=== PATIENT | female | born 1955 | race Caucasian/White ===

== ENCOUNTER 2022-04-01 08:40 | Emergency (ER) | payer MEDICAID, MEDICARE ==
[~2022-04-01] VITALS: Ht 170.2 cm; Wt 52.2 kg
--- NOTE | 2022-04-01 09:01 | NUR ---
DR SILVA AT BEDSIDE FOR EVALUATION.
--- NOTE | 2022-04-01 09:23 | NUR ---
PCXR AND LABS DRAWN AT BEDSIDE.
[2022-04-01 09:25] LABS: HEMATOCRIT 41.8 % (31.2-41.9); MEAN CORPUSCULAR HEMOGLOBIN 30.2 uug (24.7-32.8); MEAN CORPUSCULAR VOLUME 88.2 fL (75.5-95.3); PLATELET COUNT (AUTO) 221 K/uL (179-408)
[2022-04-01 10:21] LABS: CARBON DIOXIDE 28 mmol/L (21-32); CHLORIDE 105 mmol/L (98-107); CREATININE 0.6 mg/dL (0.6-1.3); GLUCOSE 102 mg/dL (74-106); POTASSIUM 3.7 mmol/L (3.5-5.1); UREA NITROGEN, BLOOD 14 mg/dL (7-18)
--- NOTE | 2022-04-01 10:23 | NUR ---
Pt disconnected from bedside monitor and escorted to the bathroom. No UA ordered and no urinbe collected.
[2022-04-01] MEDS ORDERED: IBUPROFEN 200 MG TABLET PO ONE (11:45)
--- NOTE | 2022-04-01 12:58 | NUR ---
DR SILVA REVIEWED TEST RESULTS WITH PATIENT.
[2022-04-01 12:59] VITALS: BP 103/45
== END 2022-04-01 12:59 | disposition home or self-care (01) ==
LOC: ER 08:40
DX: R07.89 Other chest pain (principal)
CPT/HCPCS: 36415; 71045; 84484; 85025; 93005; A4663

== ENCOUNTER 2025-02-26 16:21 | Emergency (ER) | payer MEDICARE, OTHER ==
[~2025-02-26] VITALS: Ht 167.6 cm; Wt 51.3 kg
[2025-02-26] MEDS ORDERED: SILVER SULFADIAZINE 1% CREAM 50 GM TP ONE (17:14)
[2025-02-26] MEDS ORDERED: TDAP DIPH,PERTUSS,TET VAC/PF 0.5 ML DISP.SYRIN IM ONE (17:22)
[2025-02-26] MEDS ORDERED: SILV50CR32 TP (17:24)
[2025-02-26] MEDS: SILVER SULFADIAZINE 1% CREAM 50 GM TP ONE (17:40)
[2025-02-26] MEDS: TDAP DIPH,PERTUSS,TET VAC/PF 0.5 ML DISP.SYRIN IM ONE (17:54)
[2025-02-26 18:13] VITALS: BP 106/63; TEMP 98.5; O2SAT 97
== END 2025-02-26 18:14 | disposition home or self-care (01) ==
LOC: ER 16:42
DX: T21.25XA Burn of second degree of buttock, initial encounter (principal); Z60.2 Problems related to living alone; X11.8XXA Contact with other hot tap-water, initial encounter; Y93.89 Activity, other specified; Y92.89 Other specified places as the place of occurrence of the external cause; Y99.8 Other external cause status
CPT/HCPCS: 16020; 90715; A4606; A4663

== ENCOUNTER 2025-02-28 15:20 | Emergency (ER) | payer MEDICARE, OTHER ==
[~2025-02-28] VITALS: Ht 167.6 cm; Wt 51.3 kg
[~2025-02-28 15:20] MED LIST: SILV50CR32 TP
[2025-02-28] MEDS ORDERED: SILVER SULFADIAZINE 1% CREAM 50 GM TP ONE (15:49)
[2025-02-28] MEDS: SILVER SULFADIAZINE 1% CREAM 50 GM TP ONE (16:05)
[2025-02-28] MEDS ORDERED: CEPH500C2 PO (16:09)
[2025-02-28 16:27] VITALS: BP 95/49; TEMP 97.8; O2SAT 96
== END 2025-02-28 16:28 | disposition home or self-care (01) ==
LOC: ER 15:20
DX: T21.25XA Burn of second degree of buttock, initial encounter (principal); Z88.7 Allergy status to serum and vaccine; Z60.2 Problems related to living alone; X12.XXXA Contact with other hot fluids, initial encounter; Y93.89 Activity, other specified; Y92.89 Other specified places as the place of occurrence of the external cause; Y99.8 Other external cause status
CPT/HCPCS: 16020; A4606; A4663